=== PATIENT | male | born 1975 | race Caucasian/White ===

== ENCOUNTER → 2022-05-08 | Outpatient (REF) | payer MEDICARE, MEDICAID ==
[2022-05-09 13:29] LABS: CREATININE, URINE 23.7 MG/DL; MALB URINE SIEMENS < 3.0 MG/L; MAU/CREAT RATIO 12.6 MCG/MG (0.0-30.0)
== END ==
LOC: M LAB REF 12:16
PROVIDERS: ATTEND Nurse Practitioner Family
DX: E11.9 Type 2 diabetes mellitus without complications (principal)

== ENCOUNTER → 2022-05-26 | Outpatient (CLI) | payer MEDICARE, MEDICAID ==
[2022-05-26 20:15] LABS: BASO # 0.1 10^3/uL (0.0-0.2); BASO % 0.5 % (0.0-1.0); EOS # 0.4 10^3/uL (0.0-0.5); HEMATOCRIT 40.8 % (42.0-52.0); HEMOGLOBIN 13.3 g/dl (13.5-17.5); LYMPH # 1.7 10^3/uL (1.5-5.0); LYMPH % 18.1 % (24.0-44.0); MEAN CORPUSCULAR HGB CONC 32.6 g/dl (32.0-36.5); MEAN CORPUSCULAR VOLUME 95.1 fl (80.0-96.0); MONO # 0.5 10^3/uL (0.0-0.8); MONO % 5.9 % (2.0-8.0); NEUTROPHILS # 6.5 10^3/uL (1.5-8.5); NEUTROPHILS % 70.5 % (36.0-66.0); PLATELET COUNT, AUTOMATED 250 10^3/uL (150-450); RED BLOOD COUNT 4.29 10^6/uL (4.30-6.10); WHITE BLOOD COUNT 9.2 10^3/uL (4.0-10.0)
[2022-05-26 20:33] LABS: THYROID STIMULATING HORMONE 1.885 uIU/ML (0.55-4.78)
[2022-05-26 20:35] LABS: ALBUMIN 3.5 G/DL (3.2-5.2); ALKALINE PHOSPHATASE 117 U/L (46-116); ALT/SGPT 35 U/L (7.0-40); AST/SGOT 24 U/L (<34); BILIRUBIN,TOTAL 0.9 MG/DL (0.3-1.2); BLOOD UREA NITROGEN 11 MG/DL (9-23); CALCIUM LEVEL 9.5 MG/DL (8.5-10.1); CARBON DIOXIDE LEVEL 30 MMOL/L (20-31); CHLORIDE LEVEL 98 MMOL/L (98-107); CHOLESTEROL LEVEL 199 MG/DL (<200); CHOLESTEROL RISK RATIO 6.48 (<5); CREATININE FOR GFR 0.63 MG/DL (0.70-1.30); GLOMERULAR FILTRATION RATE > 60.0 (>60); GLUCOSE, FASTING 182 MG/DL (60-100); HDL CHOLESTEROL 30.7 MG/DL (>40); LDL CHOLESTEROL 95.1 MG/DL (<100); NON-HDL-C 168.3 MG/DL; SODIUM LEVEL 136 MMOL/L (136-145); TOTAL PROTEIN 6.7 G/DL (5.7-8.2); TRIGLYCERIDES LEVEL 366 MG/DL (<150)
[2022-05-26 20:36] LABS: TOTAL 25(OH) VITAMIN D 13.3 NG/ML (20.0-100.0)
[2022-05-26 22:32] LABS: HEMOGLOBIN A1c 7.9 % (4.0-6.0)
== END ==
LOC: M WUC 14:56
PROVIDERS: ATTEND Nurse Practitioner Family
DX: E66.3 Overweight (principal); E55.9 Vitamin D deficiency, unspecified; R53.83 Other fatigue

== ENCOUNTER → 2022-06-26 | Outpatient (REF) | payer MEDICARE, MEDICAID ==
[2022-06-27 13:32] LABS: APPEARANCE, URINE HAZY (CLEAR); BACTERIA, URINE AUTO NEGATIVE (NEGATIVE); BILIRUBIN, URINE AUTO NEGATIVE (NEGATIVE); BLOOD, URINE BLOOD NEGATIVE (NEGATIVE); COLOR, URINE YELLOW (YELLOW); GLUCOSE, URINE (UA) AUTO 3+ mg/dL (NEGATIVE); KETONE, URINE AUTO NEGATIVE (NEGATIVE); LEUKOCYTE ESTERASE, URINE AUTO NEGATIVE (NEGATIVE); NITRITE, URINE AUTO NEGATIVE (NEGATIVE); PROTEIN, URINE AUTO NEGATIVE (NEGATIVE); RBC, URINE AUTO 0 /HPF (0-3); SPECIFIC GRAVITY URINE AUTO 1.017 (1.002-1.035); SQUAMOUS EPITHELIAL CELL UR AU 0 /HPF (0-6); WBC, URINE AUTO 1 /HPF (0-3)
== END ==
LOC: M LAB REF 12:20
PROVIDERS: ATTEND Nurse Practitioner Family
DX: N40.1 Benign prostatic hyperplasia with lower urinary tract symptoms (principal)

== ENCOUNTER 2022-08-05 12:45 | Outpatient (RCR) | payer MEDICARE, MEDICAID | END 2022-08-22 | LOC: M PT 12:45 | PROVIDERS: ATTEND Nurse Practitioner Family | DX: Z89.612 Acquired absence of left leg above knee (principal) ==

== ENCOUNTER 2022-08-25 14:45 | Emergency (ER) | payer MEDICARE, MEDICAID ==
[~2022-08-25] VITALS: Ht 172.7 cm; Wt 168.8 kg
[2022-08-25] MEDS ORDERED: METOPROLOL TART 50 MG TAB PO ONE (15:15)
[2022-08-25 15:20] LABS: BASO % 0.4 % (0.0-1.0); EOS # 0.5 10^3/uL (0.0-0.5); EOS % 4.8 % (0.0-3.0); HEMATOCRIT 42.8 % (42.0-52.0); HEMOGLOBIN 14.1 g/dl (13.5-17.5); LYMPH # 1.3 10^3/uL (1.5-5.0); LYMPH % 13.3 % (24.0-44.0); MEAN CORPUSCULAR HEMOGLOBIN 30.1 pg (27.0-33.0); MEAN CORPUSCULAR HGB CONC 32.9 g/dl (32.0-36.5); MEAN CORPUSCULAR VOLUME 91.3 fl (80.0-96.0); MONO # 0.5 10^3/uL (0.0-0.8); MONO % 4.8 % (2.0-8.0); NEUTROPHILS # 7.5 10^3/uL (1.5-8.5); NEUTROPHILS % 76.2 % (36.0-66.0); PLATELET COUNT, AUTOMATED 220 10^3/uL (150-450); RED BLOOD COUNT 4.69 10^6/uL (4.30-6.10); WHITE BLOOD COUNT 9.9 10^3/uL (4.0-10.0)
[2022-08-25] MEDS: METOPROLOL 5 MG/5 ML VIAL IV SCH ×3 (15:21→15:48)
[2022-08-25 15:44] LABS: LIPASE 22 U/L (12-53)
[2022-08-25 15:46] LABS: ALBUMIN 3.7 G/DL (3.2-5.2); ALKALINE PHOSPHATASE 111 U/L (46-116); ALT/SGPT < 9 U/L (7.0-40); AST/SGOT 46 U/L (<34); BILIRUBIN,DIRECT 0.3 MG/DL (<0.4); BILIRUBIN,TOTAL 1.5 MG/DL (0.3-1.2); BLOOD UREA NITROGEN 14 MG/DL (9-23); CALCIUM LEVEL 8.3 MG/DL (8.5-10.1); CARBON DIOXIDE LEVEL 34 MMOL/L (20-31); CHLORIDE LEVEL 94 MMOL/L (98-107); CREATININE FOR GFR 0.59 MG/DL (0.70-1.30); GLOMERULAR FILTRATION RATE > 60.0 (>60); GLUCOSE, FASTING 193 MG/DL (60-100); MAGNESIUM LEVEL 1.5 MG/DL (1.8-2.4); SODIUM LEVEL 139 MMOL/L (136-145); TOTAL PROTEIN 6.9 G/DL (5.7-8.2)
[2022-08-25 15:50] LABS: THYROID STIMULATING HORMONE 1.662 uIU/ML (0.55-4.78)
[2022-08-25 16:04] LABS: RSV AMPLIFICATION NEGATIVE (NEGATIVE)
[2022-08-25] MEDS ORDERED: METOPROLOL 5 MG/5 ML VIAL IV SCH (16:10)
[2022-08-25] MEDS ORDERED: MAG SULF 1GM/100ML (MAG RUN) 1 GM in IV 1 EA IV ONE (16:10)
[2022-08-25] MEDS ORDERED: LOSARTAN 50MG TABLET PO ONE (17:25)
[2022-08-25] MEDS ORDERED: APIXABAN 5 MG TAB (ELIQUIS) PO ONE (17:25)
[2022-08-25] MEDS ORDERED: DIGOXIN 0.25 MG TAB PO ONE (17:25)
[2022-08-25] MEDS ORDERED: CARVedilol 12.5 MG TAB PO ONE (17:25)
[2022-08-25 17:41] VITALS: BP 136/87
[2022-08-25 17:48] LABS: INR 0.91; PROTHROMBIN TIME 12.5 SECONDS (12.5-14.5)
[2022-08-25] MEDS ORDERED: CETI10CH PO (18:42)
[2022-08-25] MEDS ORDERED: CYCL5TAB PO (18:42)
[2022-08-25] MEDS ORDERED: FLUT50SP17 NARES (18:42)
[2022-08-25] MEDS ORDERED: DULO1CAP6 PO (18:42)
[2022-08-25] MEDS ORDERED: VITA200032 PO (18:42)
[2022-08-25] MEDS ORDERED: ROSU20TA61 PO (18:42)
[2022-08-25] MEDS ORDERED: TORS20TA2 PO (18:42)
[2022-08-25] MEDS ORDERED: TRUL0.5I (18:42)
[2022-08-25] MEDS ORDERED: METO1TAB87 PO (18:42)
[2022-08-25] MEDS ORDERED: GABA-282 PO (18:42)
[2022-08-25] MEDS ORDERED: METF500T13 PO (18:42)
[2022-08-25] MEDS ORDERED: OMEP40CA5 PO (18:42)
[2022-08-25] MEDS ORDERED: DIGO0.253 PO (18:48)
[2022-08-25] MEDS ORDERED: CARV25TA PO (18:48)
[2022-08-25] MEDS ORDERED: ELIQ5TAB PO (18:48)
[2022-08-25] MEDS ORDERED: LOSA50TA28 PO (18:48)
[2022-08-25] MEDS ORDERED: SLOWTAB2 PO (18:48)
[2022-08-25 19:00] VITALS: BP 111/81; TEMP 97.7; O2SAT 91
== END 2022-08-25 19:12 | disposition home or self-care (01) ==
LOC: M ED 14:45
DX: E83.42 Hypomagnesemia (principal); I48.3 Typical atrial flutter; E11.9 Type 2 diabetes mellitus without complications; I10 Essential (primary) hypertension; E78.5 Hyperlipidemia, unspecified; J44.9 Chronic obstructive pulmonary disease, unspecified; G47.33 Obstructive sleep apnea (adult) (pediatric); F10.10 Alcohol abuse, uncomplicated; Z79.01 Long term (current) use of anticoagulants; Z79.811 Long term (current) use of aromatase inhibitors; Z79.4 Long term (current) use of insulin; Z79.899 Other long term (current) drug therapy
CPT/HCPCS: 71045; 80048; 80076; 83690; 83735; 83880; 84439; 84443; 85025; 85610; 87631; 93005; 93041; 94760; 96374; 96375; 99285; J3475

== ENCOUNTER 2022-09-27 22:05 | Emergency (ER) | payer MEDICARE, MEDICAID ==
[~2022-09-27] VITALS: Ht 172.7 cm; Wt 156.8 kg
[~2022-09-27 22:05] MED LIST: CARV25TA PO; CETI10CH PO; CYCL5TAB PO; DIGO0.253 PO; DULO1CAP6 PO; ELIQ5TAB PO; FLUT50SP17 NARES; GABA-282 PO; LOSA50TA28 PO; METF500T13 PO; METO1TAB87 PO; OMEP40CA5 PO; ROSU20TA61 PO; SLOWTAB2 PO; TORS20TA2 PO; TRUL0.5I INJ; VITA200032 PO
[2022-09-27 22:46] LABS: HEMATOCRIT 37.7 % (42.0-52.0); HEMOGLOBIN 12.9 g/dl (13.5-17.5); MEAN CORPUSCULAR HEMOGLOBIN 29.5 pg (27.0-33.0); MEAN CORPUSCULAR HGB CONC 34.2 g/dl (32.0-36.5); MEAN CORPUSCULAR VOLUME 86.3 fl (80.0-96.0); PLATELET COUNT, AUTOMATED 278 10^3/uL (150-450); RED BLOOD COUNT 4.37 10^6/uL (4.30-6.10); WHITE BLOOD COUNT 10.5 10^3/uL (4.0-10.0)
[2022-09-27 23:19] LABS: AMPHETAMINES LEVEL URINE NEGATIVE (NEGATIVE); BARBITURATES URINE NEGATIVE (NEGATIVE); BENZODIAZEPINES URINE NEGATIVE (NEGATIVE); CANNABINOIDS URINE NEGATIVE (NEGATIVE); COCAINE METABOLITE URINE NEGATIVE (NEGATIVE); METHADONE URINE NEGATIVE (NEGATIVE); OPIATES URINE NEGATIVE (NEGATIVE); PHENCYCLIDINE URINE NEGATIVE (NEGATIVE)
[2022-09-27 23:23] LABS: ACETAMINOPHEN LEVEL < 2.0 UG/ML (10.0-20.0); SALICYLATE LEVEL < 3.0 MG/DL (<30)
[2022-09-27 23:24] LABS: ALKALINE PHOSPHATASE 129 U/L (46-116); ALT/SGPT 35 U/L (7.0-40); AST/SGOT 55 U/L (<34); BILIRUBIN,DIRECT 0.4 MG/DL (<0.4); BLOOD UREA NITROGEN 5 MG/DL (9-23); CALCIUM LEVEL 9.1 MG/DL (8.5-10.1); CARBON DIOXIDE LEVEL 24 MMOL/L (20-31); CHLORIDE LEVEL 91 MMOL/L (98-107); CREATININE FOR GFR 0.65 MG/DL (0.70-1.30); GLOMERULAR FILTRATION RATE > 60.0 (>60); GLUCOSE, FASTING 347 MG/DL (60-100); POTASSIUM SERUM 3.6 MMOL/L (3.5-5.1); SODIUM LEVEL 131 MMOL/L (136-145); TOTAL PROTEIN 7.5 G/DL (5.7-8.2)
[2022-09-27 23:25] LABS: THYROID STIMULATING HORMONE 1.475 uIU/ML (0.55-4.78)
[2022-09-28] MEDS ORDERED: DIGOXIN 0.25 MG TAB PO STA (00:09)
[2022-09-28] MEDS ORDERED: GABA800T4 PO (00:31)
[2022-09-28] MEDS ORDERED: CYCL5TAB PO (00:31)
[2022-09-28] MEDS ORDERED: GABA-282 PO (00:31)
[2022-09-28] MEDS ORDERED: LOSA50TA28 PO (00:31)
[2022-09-28] MEDS ORDERED: CARV25TA PO (00:31)
[2022-09-28] MEDS ORDERED: SLOWTAB2 PO (00:31)
[2022-09-28] MEDS ORDERED: LORA-674 PO (00:31)
[2022-09-28] MEDS ORDERED: DIGO0.253 PO (00:31)
[2022-09-28] MEDS ORDERED: ELIQ5TAB PO (00:31)
[2022-09-28] MEDS ORDERED: HOME MED LIST COMPLETE! XX SCH (00:35)
[2022-09-28] MEDS ORDERED: APIXABAN 5 MG TAB (ELIQUIS) PO ONE (02:30)
[2022-09-28] MEDS ORDERED: CARVedilol 12.5 MG TAB PO ONE (02:30)
[2022-09-28 03:03] VITALS: BP 161/89
[2022-09-28 08:33] VITALS: BP 107/58; TEMP 98.1; O2SAT 97
== END 2022-09-28 08:33 | disposition home or self-care (01) ==
LOC: M ED 22:05
DX: F32.A Depression, unspecified (principal); E11.9 Type 2 diabetes mellitus without complications; J44.9 Chronic obstructive pulmonary disease, unspecified; I10 Essential (primary) hypertension; E78.5 Hyperlipidemia, unspecified; G47.33 Obstructive sleep apnea (adult) (pediatric); F10.20 Alcohol dependence, uncomplicated; Z86.79 Personal history of other diseases of the circulatory system; Z79.01 Long term (current) use of anticoagulants; Z79.811 Long term (current) use of aromatase inhibitors; Z79.4 Long term (current) use of insulin; Z79.899 Other long term (current) drug therapy

== ENCOUNTER → 2022-12-16 | Outpatient (REF) | payer MEDICARE, MEDICAID ==
[~2022-12-16] MED LIST changes: +GABA800T4 PO; +LORA-1041 PO
[2022-12-17 14:12] LABS: BLOOD UREA NITROGEN 10 MG/DL (9-23); CALCIUM LEVEL 9.4 MG/DL (8.5-10.1); CARBON DIOXIDE LEVEL 31 MMOL/L (20-31); CHLORIDE LEVEL 93 MMOL/L (98-107); CREATININE FOR GFR 0.61 MG/DL (0.70-1.30); GLOMERULAR FILTRATION RATE > 60.0 (>60); GLUCOSE, FASTING 410 MG/DL (60-100); MAGNESIUM LEVEL 1.8 MG/DL (1.8-2.4); POTASSIUM SERUM 5.7 MMOL/L (3.5-5.1); SODIUM LEVEL 130 MMOL/L (136-145)
== END ==
LOC: M LAB REF 12:43
PROVIDERS: ATTEND Nurse Practitioner Family
DX: I48.91 Unspecified atrial fibrillation (principal); E83.42 Hypomagnesemia

== ENCOUNTER → 2022-12-23 | Outpatient (RCR) | payer MEDICARE, MEDICAID | LOC: M PT 11-25 11:59 | PROVIDERS: ATTEND Nurse Practitioner Family | DX: Z74.09 Other reduced mobility (principal) ==

== ENCOUNTER 2023-04-08 00:37 | Emergency (ER) | payer MEDICARE, MEDICAID ==
[~2023-04-08] VITALS: Ht 172.7 cm; Wt 174.0 kg
[~2023-04-08 00:37] MED LIST changes: -FLUT50SP17 NARES; +FLUTISP NARES
[2023-04-08] MEDS: IPRATROPIUM 0.5MG/ALBUTEROL 2.5MG INH SOL UD 3ML (DUONEB) NEB PRN (01:48)
[2023-04-08 01:55] VITALS: O2SAT 94
[2023-04-08 01:55] LABS: RSV AMPLIFICATION NEGATIVE (NEGATIVE)
[2023-04-08 01:59] VITALS: TEMP 96.2
[2023-04-08] MEDS: predniSONE 20 MG TAB PO ONE (02:40)
[2023-04-08] MEDS: CYCLOBENZAPRINE 10MG TABLET PO ONE (02:40)
[2023-04-08 02:44] LABS: BASO % 0.5 % (0.0-1.0); EOS # 0.3 10^3/uL (0.0-0.5); EOS % 4.3 % (0.0-3.0); HEMATOCRIT 41.3 % (42.0-52.0); HEMOGLOBIN 13.5 g/dl (13.5-17.5); LYMPH # 0.8 10^3/uL (1.5-5.0); LYMPH % 13.3 % (24.0-44.0); MEAN CORPUSCULAR HEMOGLOBIN 30.5 pg (27.0-33.0); MEAN CORPUSCULAR HGB CONC 32.7 g/dl (32.0-36.5); MEAN CORPUSCULAR VOLUME 93.2 fl (80.0-96.0); MONO # 0.4 10^3/uL (0.0-0.8); MONO % 6.9 % (2.0-8.0); NEUTROPHILS # 4.5 10^3/uL (1.5-8.5); PLATELET COUNT, AUTOMATED 163 10^3/uL (150-450); RED BLOOD COUNT 4.43 10^6/uL (4.30-6.10); WHITE BLOOD COUNT 6.1 10^3/uL (4.0-10.0)
[2023-04-08 03:14] LABS: BLOOD UREA NITROGEN 5 MG/DL (9-23); CALCIUM LEVEL 8.4 MG/DL (8.5-10.1); CARBON DIOXIDE LEVEL 32 MMOL/L (20-31); CHLORIDE LEVEL 97 MMOL/L (98-107); CREATININE FOR GFR 0.53 MG/DL (0.70-1.30); GLOMERULAR FILTRATION RATE > 60.0 (>60); GLUCOSE, FASTING 245 MG/DL (60-100); POTASSIUM SERUM 4.4 MMOL/L (3.5-5.1); SODIUM LEVEL 132 MMOL/L (136-145)
[2023-04-08 03:27] LABS: PROCALCITONIN 0.12 ng/ml
[2023-04-08 03:37] VITALS: BP 144/74; O2SAT 95
[2023-04-08] MEDS ORDERED: AZIT-12 PO (03:55)
[2023-04-08] MEDS ORDERED: COMBAER6 INH (03:55)
[2023-04-08] MEDS ORDERED: PRED20TA PO (03:55)
== END 2023-04-08 08:59 | disposition home or self-care (01) ==
LOC: EDBD 00:37 → M ED 00:37
DX: J44.1 Chronic obstructive pulmonary disease with (acute) exacerbation (principal); B34.8 Other viral infections of unspecified site; E11.9 Type 2 diabetes mellitus without complications; I10 Essential (primary) hypertension; E78.5 Hyperlipidemia, unspecified; K21.9 Gastro-esophageal reflux disease without esophagitis; F32.A Depression, unspecified; G47.33 Obstructive sleep apnea (adult) (pediatric); Z86.79 Personal history of other diseases of the circulatory system; Z79.84 Long term (current) use of oral hypoglycemic drugs; Z79.4 Long term (current) use of insulin; Z79.52 Long term (current) use of systemic steroids; Z79.01 Long term (current) use of anticoagulants; Z79.811 Long term (current) use of aromatase inhibitors; Z79.899 Other long term (current) drug therapy
CPT/HCPCS: 36415; 71046; 80048; 84145; 85025; 87486; 87581; 87631; 87633; 87798; 93005; 94640; 99284; J7512

== ENCOUNTER 2023-05-19 21:26 | Inpatient (IN) | payer MEDICARE, MEDICAID ==
[~2023-05-19] VITALS: Ht 172.7 cm; Wt 171.0 kg
[~2023-05-19 21:26] MED LIST changes: +AZIT-12 PO; +COMBAER6 INH; +PRED20TA PO
[2023-05-19] MEDS: METOPROLOL TART 25 MG TABLET PO ONE ×2 (21:53→23:05)
[2023-05-19] MEDS: METOPROLOL 5 MG/5 ML VIAL IV PRN ×2 (21:53→23:31)
[2023-05-19 21:56] LABS: VENOUS BASE EXCESS -5.8 (-2.0-2.0); VENOUS HCO3 21.7 MMOL/L (23.0-27.0); VENOUS O2 SATURATION 86.7 % (60.0-80.0); VENOUS PARTIAL PRESSURE CO2 50.2 mmHg (38.0-50.0); VENOUS PARTIAL PRESSURE O2 58.3 mmHg (30.0-50.0); VENOUS PH 7.254 UNITS (7.330-7.430); VENOUS STANDARD HCO3 19.5 MMOL/L; VENOUS TOTAL CO2 23.3 MMOL/L (24.0-28.0)
[2023-05-19] MEDS: ONDANSETRON 4MG 2ML VIAL IV ONE (21:57)
[2023-05-19] MEDS: DIGOXIN INJ 0.5 MG/2 ML AMP IV ONE (21:58)
[2023-05-19 22:00] LABS: BASO # 0.1 10^3/uL (0.0-0.2); BASO % 0.9 % (0.0-1.0); EOS # 0.2 10^3/uL (0.0-0.5); EOS % 1.8 % (0.0-3.0); HEMATOCRIT 44.1 % (42.0-52.0); LYMPH # 2.3 10^3/uL (1.5-5.0); LYMPH % 21.3 % (24.0-44.0); MEAN CORPUSCULAR HEMOGLOBIN 30.4 pg (27.0-33.0); MEAN CORPUSCULAR VOLUME 89.5 fl (80.0-96.0); MONO # 0.5 10^3/uL (0.0-0.8); MONO % 5.1 % (2.0-8.0); NEUTROPHILS # 7.3 10^3/uL (1.5-8.5); NEUTROPHILS % 69.5 % (36.0-66.0); PLATELET COUNT, AUTOMATED 251 10^3/uL (150-450); RED BLOOD COUNT 4.93 10^6/uL (4.30-6.10); WHITE BLOOD COUNT 10.5 10^3/uL (4.0-10.0)
[2023-05-19 22:12] LABS: INR 1.04; PARTIAL THROMBOPLASTIN TIME 26.1 SECONDS (24.8-34.2); PROTHROMBIN TIME 13.3 SECONDS (12.5-14.5)
[2023-05-19 22:20] LABS: CK-MB VALUE MASS 1.4 NG/ML (<3.6); ETHYL ALCOHOL (ETHANOL) 0.227 % (0.000-0.010)
[2023-05-19 22:21] LABS: SALICYLATE LEVEL < 3.0 MG/DL (<30)
[2023-05-19 22:22] LABS: ALBUMIN 3.8 G/DL (3.2-5.2); ALKALINE PHOSPHATASE 124 U/L (46-116); ALT/SGPT 42 U/L (7.0-40); AST/SGOT 54 U/L (<34); BILIRUBIN,DIRECT 0.3 MG/DL (<0.4); BILIRUBIN,TOTAL 1.1 MG/DL (0.3-1.2); BLOOD UREA NITROGEN 5 MG/DL (9-23); CALCIUM LEVEL 8.7 MG/DL (8.5-10.1); CARBON DIOXIDE LEVEL 23 MMOL/L (20-31); CHLORIDE LEVEL 98 MMOL/L (98-107); CPK CREATINE PHOSPHOKINASE 69 U/L (46-171); CREATININE FOR GFR 0.51 MG/DL (0.70-1.30); DIGOXIN LEVEL < 0.1 NG/ML (0.8-2.0); GLOMERULAR FILTRATION RATE > 60.0 (>60); GLUCOSE, FASTING 251 MG/DL (60-100); MB/CK RELATIVE INDEX 2.02 (< OR =4); POTASSIUM SERUM 3.6 MMOL/L (3.5-5.1); SODIUM LEVEL 130 MMOL/L (136-145); TOTAL PROTEIN 7.4 G/DL (5.7-8.2)
[2023-05-19 22:23] LABS: ABG BASE EXCESS -5.2 (-2.0-2.0); ABG HCO3 22.2 MMOL/L (22.0-26.0); ABG O2 SATURATION 88.8 % (95.0-99.0); ABG PARTIAL PRESSURE CO2 50.2 mmHg (35.0-45.0); ABG PARTIAL PRESSURE O2 64.6 mmHg (75.0-100.0); ABG TOTAL CO2 23.7 MMOL/L (22.0-29.0); ABG pH (ARTERIAL) 7.263 UNITS (7.350-7.450)
[2023-05-19 22:23] LABS: THYROID STIMULATING HORMONE 1.427 uIU/ML (0.55-4.78)
[2023-05-19] MEDS: FUROSEMIDE 40MG/4ML VIAL IV ONE (22:33)
[2023-05-19] MEDS ORDERED: ISOVUE-370 76% 100ML VIAL As Ordered ONE (22:45)
[2023-05-19] MEDS ORDERED: DIGOXIN 0.25 MG TAB PO ONE (23:05)
[2023-05-19 23:59] LABS: MB/CK RELATIVE INDEX 3.03 (< OR =4)
[2023-05-20] VITALS (29 sets, daily range): BP systolic 101–139; BP diastolic 53–98; TEMP 98.1–99.1; O2SAT 92–100
[2023-05-20 00:11] LABS: ABG HCO3 22.9 MMOL/L (22.0-26.0); ABG O2 SATURATION 96.6 % (95.0-99.0); ABG PARTIAL PRESSURE CO2 53.6 mmHg (35.0-45.0); ABG PARTIAL PRESSURE O2 97.8 mmHg (75.0-100.0); ABG STANDARD HCO3 20.4 MMOL/L. (22.0-26.0); ABG TOTAL CO2 24.6 MMOL/L (22.0-29.0); ABG pH (ARTERIAL) 7.249 UNITS (7.350-7.450)
[2023-05-20] MEDS: ASPIRIN 81MG CHEW TABLET PO ONE (00:35)
[2023-05-20 01:50] LABS: APPEARANCE, URINE CLEAR (CLEAR); BACTERIA, URINE AUTO NEGATIVE (NEGATIVE); BILIRUBIN, URINE AUTO NEGATIVE (NEGATIVE); BLOOD, URINE BLOOD NEGATIVE (NEGATIVE); COLOR, URINE STRAW (YELLOW); GLUCOSE, URINE (UA) AUTO 1+ mg/dL (NEGATIVE); KETONE, URINE AUTO NEGATIVE (NEGATIVE); LEUKOCYTE ESTERASE, URINE AUTO NEGATIVE (NEGATIVE); NITRITE, URINE AUTO NEGATIVE (NEGATIVE); PROTEIN, URINE AUTO NEGATIVE (NEGATIVE); RBC, URINE AUTO 0 /HPF (0-3); SPECIFIC GRAVITY URINE AUTO 1.008 (1.002-1.035); SQUAMOUS EPITHELIAL CELL UR AU 0 /HPF (0-6); UROBILINOGEN, URINE AUTO 0.2 mg/dL (0.0-2.0); WBC, URINE AUTO 0 /HPF (0-3)
[2023-05-20] MEDS ORDERED: COMBAER6 INH (02:33)
[2023-05-20] MEDS ORDERED: METO25TA4 PO (02:33)
[2023-05-20] MEDS ORDERED: MAGN400T35 PO (02:33)
[2023-05-20] MEDS ORDERED: DULA3PEN SC (02:33)
[2023-05-20] MEDS ORDERED: FLOM0.4C39 PO (02:33)
[2023-05-20] MEDS ORDERED: HOME MED LIST COMPLETE! XX SCH (02:40)
[2023-05-20 05:40] LABS: ABG BASE EXCESS -2.4 (-2.0-2.0); ABG HCO3 24.6 MMOL/L (22.0-26.0); ABG O2 SATURATION 98.4 % (95.0-99.0); ABG PARTIAL PRESSURE CO2 51.1 mmHg (35.0-45.0); ABG PARTIAL PRESSURE O2 131.6 mmHg (75.0-100.0); ABG STANDARD HCO3 22.5 MMOL/L. (22.0-26.0); ABG TOTAL CO2 26.1 MMOL/L (22.0-29.0)
[2023-05-20] MEDS: IPRATROPIUM 0.5MG/ALBUTEROL 2.5MG INH SOL UD 3ML (DUONEB) NEB SCH (07:51)
[2023-05-20] MEDS: FOLIC ACID 1MG TAB PO SCH (09:15)
[2023-05-20] MEDS: PANTOPRAZOLE 40MG VIAL IV SCH (09:15)
[2023-05-20] MEDS: DULoxetine 30MG CAPSULE (CYMBALTA) PO SCH (09:16)
[2023-05-20] MEDS: DIGOXIN 0.25 MG TAB PO SCH (09:16)
[2023-05-20] MEDS: ROSUVASTATIN 10 MG TAB (CRESTOR) PO SCH (09:16)
[2023-05-20] MEDS: THIAMINE 100 MG TAB PO SCH (09:17)
[2023-05-20] MEDS: APIXABAN 5 MG TAB (ELIQUIS) PO SCH (09:17)
[2023-05-20] MEDS: TAMSULOSIN 0.4 MG CAP PO SCH (09:17)
[2023-05-20] MEDS: MULTIVITAMINS/MINERALS THERAP 1 TAB PO SCH (09:17)
[2023-05-20] MEDS: GABAPENTIN 300 MG CAP PO SCH (09:17)
[2023-05-20] MEDS: METOPROLOL TART 25 MG TABLET PO SCH (09:23)
[2023-05-20] MEDS: METOPROLOL 5 MG/5 ML VIAL IV STA (09:24)
[2023-05-20] MEDS: dilTIAZem 25MG/5ML VIAL IV STA (10:05)
[2023-05-20] MEDS: AMIODARONE HCL 150 MG in IV 1 EA IV ONE (12:19)
[2023-05-20] MEDS: AMIODARONE HCL 360 MG in IV 1 EA IV SCH (12:36)
[2023-05-20] MEDS: diltiaZEM 125 MG in NS 100 ML IV SCH (14:07)
[2023-05-20] MEDS: DIGOXIN INJ 0.5 MG/2 ML AMP IV ONE ×2 (16:05→21:47)
[2023-05-20 17:53] LABS: MAGNESIUM LEVEL 1.6 MG/DL (1.8-2.4)
[2023-05-20] MEDS ORDERED: AMIODARONE HCL 360 MG in IV 1 EA IV SCH (18:30)
[2023-05-20] MEDS: MAG SULF 1GM/100ML (MAG RUN) 1 GM in IV 1 EA IV ONE (18:47)
[2023-05-21] VITALS (19 sets, daily range): BP systolic 127–164; BP diastolic 62–93; PULSE 77; TEMP 97.7–99.4; O2SAT 87–98
[2023-05-21] MEDS: ACETAMINOPHEN TAB 650MG DOSE (2X325MG) PO PRN (00:24)
[2023-05-21] MEDS: ALBUTEROL SULFATE 2.5MG/0.5ML INH NEB SOLN NEB PRN (04:11)
[2023-05-21 04:17] LABS: BASO % 0.4 % (0.0-1.0); EOS # 0.3 10^3/uL (0.0-0.5); EOS % 3.9 % (0.0-3.0); LYMPH # 1.1 10^3/uL (1.5-5.0); LYMPH % 15.5 % (24.0-44.0); MEAN CORPUSCULAR HEMOGLOBIN 30.7 pg (27.0-33.0); MEAN CORPUSCULAR HGB CONC 33.4 g/dl (32.0-36.5); MONO # 0.4 10^3/uL (0.0-0.8); MONO % 5.6 % (2.0-8.0); NEUTROPHILS # 5.4 10^3/uL (1.5-8.5); PLATELET COUNT, AUTOMATED 175 10^3/uL (150-450); WHITE BLOOD COUNT 7.3 10^3/uL (4.0-10.0)
[2023-05-21 04:34] LABS: HEMATOCRIT 37.7 % (42.0-52.0); HEMOGLOBIN 12.6 g/dl (13.5-17.5)
[2023-05-21 04:39] LABS: ETHYL ALCOHOL (ETHANOL) < 0.003 % (0.000-0.010)
[2023-05-21 04:43] LABS: ALKALINE PHOSPHATASE 107 U/L (46-116); ALT/SGPT 37 U/L (7.0-40); AST/SGOT 49 U/L (<34); BILIRUBIN,TOTAL 1.4 MG/DL (0.3-1.2); BLOOD UREA NITROGEN 10 MG/DL (9-23); CALCIUM LEVEL 8.8 MG/DL (8.5-10.1); CARBON DIOXIDE LEVEL 31 MMOL/L (20-31); CHLORIDE LEVEL 98 MMOL/L (98-107); CREATININE FOR GFR 0.48 MG/DL (0.70-1.30); GLOMERULAR FILTRATION RATE > 60.0 (>60); GLUCOSE, FASTING 202 MG/DL (60-100); POTASSIUM SERUM 4.3 MMOL/L (3.5-5.1); SODIUM LEVEL 134 MMOL/L (136-145)
[2023-05-21 06:10] LABS: ABG BASE EXCESS 3.7 (-2.0-2.0); ABG HCO3 31.9 MMOL/L (22.0-26.0); ABG O2 SATURATION 98.7 % (95.0-99.0); ABG PARTIAL PRESSURE O2 147.2 mmHg (75.0-100.0); ABG STANDARD HCO3 27.8 MMOL/L. (22.0-26.0); ABG TOTAL CO2 33.9 MMOL/L (22.0-29.0); ABG pH (ARTERIAL) 7.305 UNITS (7.350-7.450)
[2023-05-21 06:18] LABS: ABG PARTIAL PRESSURE CO2 65.5 mmHg (35.0-45.0)
[2023-05-21] MEDS ORDERED: DEXTROSE 50% 50ML SYRINGE IV PRN (09:55)
[2023-05-21] MEDS ORDERED: GLUCOSE 4GM CHEW TABLET PO PRN (09:55)
[2023-05-21] MEDS ORDERED: GLUCAGON INJ 1MG VIAL SC PRN (09:55)
[2023-05-21 10:18] LABS: VENOUS BASE EXCESS 4.4 (-2.0-2.0); VENOUS HCO3 28.6 MMOL/L (23.0-27.0); VENOUS O2 SATURATION 99.5 % (60.0-80.0); VENOUS PARTIAL PRESSURE CO2 40.8 mmHg (38.0-50.0); VENOUS PARTIAL PRESSURE O2 228.4 mmHg (30.0-50.0); VENOUS PH 7.463 UNITS (7.330-7.430); VENOUS STANDARD HCO3 28.5 MMOL/L; VENOUS TOTAL CO2 29.8 MMOL/L (24.0-28.0)
[2023-05-21] MEDS: FUROSEMIDE 40MG/4ML VIAL IV ONE (10:45)
[2023-05-21] MEDS: INSULIN LISPRO (NovoLOG) PER UNIT SC SCH ×2 (11:50→21:00)
[2023-05-21] MEDS: METOPROLOL TART 25 MG TABLET PO SCH (15:37)
[2023-05-21] MEDS: LEVEMIR (INSULIN DETEMIR) 1 UNITS/0.01ML SC SCH (21:32)
[2023-05-22] VITALS (24 sets, daily range): BP systolic 89–161; BP diastolic 53–82; TEMP 97.4–99.9; O2SAT 91–98
[2023-05-22] MEDS: LEVALBUTEROL 1.25MG 0.5ML CONCENTRATE NEB NEB ONE (01:31)
[2023-05-22 05:47] LABS: ALBUMIN 3.1 G/DL (3.2-5.2); ALKALINE PHOSPHATASE 107 U/L (46-116); ALT/SGPT 34 U/L (7.0-40); AST/SGOT 33 U/L (<34); BILIRUBIN,TOTAL 1.2 MG/DL (0.3-1.2); BLOOD UREA NITROGEN 9 MG/DL (9-23); CALCIUM LEVEL 8.4 MG/DL (8.5-10.1); CARBON DIOXIDE LEVEL 33 MMOL/L (20-31); CHLORIDE LEVEL 98 MMOL/L (98-107); CREATININE FOR GFR 0.55 MG/DL (0.70-1.30); GLOMERULAR FILTRATION RATE > 60.0 (>60); GLUCOSE, FASTING 167 MG/DL (60-100); MAGNESIUM LEVEL 1.8 MG/DL (1.8-2.4); PHOSPHORUS LEVEL 2.5 MG/DL (2.5-4.9); POTASSIUM SERUM 3.7 MMOL/L (3.5-5.1); SODIUM LEVEL 136 MMOL/L (136-145)
[2023-05-22 06:11] LABS: HEMOGLOBIN A1c 8.3 % (4.0-6.0)
[2023-05-22] MEDS: dilTIAZem 30 MG TAB PO SCH ×2 (08:34→18:24)
[2023-05-22 09:01] LABS: DIGOXIN LEVEL 0.4 NG/ML (0.8-2.0)
[2023-05-22] MEDS: FUROSEMIDE 20MG/2ML VIAL IV SCH (10:00)
[2023-05-22] MEDS: MAG SULF 1GM/100ML (MAG RUN) 1 GM in IV 1 EA IV ONE (10:01)
[2023-05-22] MEDS: diltiaZEM 125 MG in NS 100 ML IV SCH (14:50)
[2023-05-22] MEDS: METOPROLOL TART 50 MG TAB PO SCH (21:07)
[2023-05-23] VITALS (15 sets, daily range): BP systolic 109–162; BP diastolic 54–88; TEMP 97–98.8; O2SAT 92–98
[2023-05-23 06:11] LABS: BLOOD UREA NITROGEN 10 MG/DL (9-23); CARBON DIOXIDE LEVEL 32 MMOL/L (20-31); CHLORIDE LEVEL 100 MMOL/L (98-107); CREATININE FOR GFR 0.59 MG/DL (0.70-1.30); GLOMERULAR FILTRATION RATE > 60.0 (>60); GLUCOSE, FASTING 203 MG/DL (60-100); MAGNESIUM LEVEL 1.9 MG/DL (1.8-2.4); POTASSIUM SERUM 4.1 MMOL/L (3.5-5.1); SODIUM LEVEL 136 MMOL/L (136-145)
[2023-05-23] MEDS: FUROSEMIDE 40MG/4ML VIAL IV SCH (08:50)
[2023-05-23] MEDS: OMEPRAZOLE 20MG CAP PO SCH (08:53)
[2023-05-23] MEDS: MAG SULF 1GM/100ML (MAG RUN) 1 GM in IV 1 EA IV ONE (09:08)
[2023-05-23] MEDS: AMIODARONE 200 MG TAB (PACERONE) PO SCH (15:05)
[2023-05-24] VITALS (15 sets, daily range): BP systolic 108–158; BP diastolic 56–80; TEMP 97–98.4; O2SAT 88–95
[2023-05-24 06:21] LABS: BLOOD UREA NITROGEN 12 MG/DL (9-23); CALCIUM LEVEL 8.9 MG/DL (8.5-10.1); CARBON DIOXIDE LEVEL 34 MMOL/L (20-31); CHLORIDE LEVEL 100 MMOL/L (98-107); CREATININE FOR GFR 0.58 MG/DL (0.70-1.30); GLOMERULAR FILTRATION RATE > 60.0 (>60); GLUCOSE, FASTING 165 MG/DL (60-100); MAGNESIUM LEVEL 1.9 MG/DL (1.8-2.4); POTASSIUM SERUM 4.2 MMOL/L (3.5-5.1); SODIUM LEVEL 137 MMOL/L (136-145)
[2023-05-25] VITALS (23 sets, daily range): BP systolic 131–147; BP diastolic 66–71; TEMP 96.8–97.6; O2SAT 78–96
[2023-05-25 05:49] LABS: BLOOD UREA NITROGEN 12 MG/DL (9-23); CALCIUM LEVEL 8.9 MG/DL (8.5-10.1); CARBON DIOXIDE LEVEL 34 MMOL/L (20-31); CHLORIDE LEVEL 101 MMOL/L (98-107); CREATININE FOR GFR 0.69 MG/DL (0.70-1.30); GLOMERULAR FILTRATION RATE > 60.0 (>60); GLUCOSE, FASTING 175 MG/DL (60-100); MAGNESIUM LEVEL 1.8 MG/DL (1.8-2.4); SODIUM LEVEL 139 MMOL/L (136-145)
[2023-05-25] MEDS: TORSEMIDE 20 MG TAB PO SCH (08:49)
[2023-05-25] MEDS ORDERED: POTA10CA60 PO (12:30)
[2023-05-25] MEDS ORDERED: ELIQ5TAB PO (12:30)
[2023-05-25] MEDS ORDERED: LOPR1TAB6 PO (12:30)
[2023-05-25] MEDS ORDERED: AMIO200T49 PO (12:30)
== END 2023-05-25 14:51 | disposition home or self-care (01) | DRG 189 ==
LOC: M ED 21:26 → M ED INP 05-20 02:34 → M ICU 05-20 07:46 → M PCU 05-24 16:05
PROVIDERS: ADMIT Internal Medicine; ATTEND Internal Medicine
DX: J96.22 Acute and chronic respiratory failure with hypercapnia (principal); I50.33 Acute on chronic diastolic (congestive) heart failure; I48.92 Unspecified atrial flutter; R45.851 Suicidal ideations; Z68.44 Body mass index [BMI] 60.0-69.9, adult; E87.1 Hypo-osmolality and hyponatremia; E66.2 Morbid (severe) obesity with alveolar hypoventilation; J96.21 Acute and chronic respiratory failure with hypoxia; I48.91 Unspecified atrial fibrillation; J44.9 Chronic obstructive pulmonary disease, unspecified; K70.10 Alcoholic hepatitis without ascites; F10.229 Alcohol dependence with intoxication, unspecified; E11.42 Type 2 diabetes mellitus with diabetic polyneuropathy; F43.21 Adjustment disorder with depressed mood; E78.5 Hyperlipidemia, unspecified; F32.A Depression, unspecified; Z79.899 Other long term (current) drug therapy; Z91.119 Patient's noncompliance with dietary regimen due to unspecified reason; Z89.612 Acquired absence of left leg above knee; K21.9 Gastro-esophageal reflux disease without esophagitis; N40.0 Benign prostatic hyperplasia without lower urinary tract symptoms

== ENCOUNTER → 2023-06-02 | Outpatient (REF) | payer MEDICARE, MEDICAID ==
[~2023-06-02] MED LIST changes: +AMIO200T49 PO; +DULA3PEN SC; +FLOM0.4C39 PO; +LOPR1TAB6 PO; +MAGN400T35 PO; +METO25TA4 PO; +POTA10CA60 PO
[2023-06-03 13:13] LABS: CREATININE, URINE 196.5 MG/DL; MAU/CREAT RATIO 64.6 MCG/MG (0.0-30.0)
== END ==
LOC: M LAB REF 11:49
PROVIDERS: ATTEND Nurse Practitioner Family
DX: E11.9 Type 2 diabetes mellitus without complications (principal)

== ENCOUNTER → 2023-06-07 | Outpatient (CLI) | payer MEDICARE, MEDICAID | LOC: M SLEEP 20:00 | PROVIDERS: ATTEND Nurse Practitioner Family | DX: G47.33 Obstructive sleep apnea (adult) (pediatric) (principal) ==

== ENCOUNTER → 2023-07-07 | Outpatient (CLI) | payer MEDICARE, MEDICAID ==
[~2023-07-07] MED LIST changes: -POTA10CA60 PO; +POTA10CA70 PO
[2023-07-07 12:33] LABS: BASO # 0.1 10^3/uL (0.0-0.2); BASO % 0.5 % (0.0-1.0); EOS # 0.7 10^3/uL (0.0-0.5); EOS % 7.7 % (0.0-3.0); HEMATOCRIT 38.7 % (42.0-52.0); HEMOGLOBIN 12.7 g/dl (13.5-17.5); LYMPH # 1.9 10^3/uL (1.5-5.0); LYMPH % 20.4 % (24.0-44.0); MEAN CORPUSCULAR HEMOGLOBIN 30.1 pg (27.0-33.0); MEAN CORPUSCULAR HGB CONC 32.8 g/dl (32.0-36.5); MEAN CORPUSCULAR VOLUME 91.7 fl (80.0-96.0); MONO # 0.5 10^3/uL (0.0-0.8); NEUTROPHILS # 6.1 10^3/uL (1.5-8.5); NEUTROPHILS % 65.5 % (36.0-66.0); PLATELET COUNT, AUTOMATED 224 10^3/uL (150-450); RED BLOOD COUNT 4.22 10^6/uL (4.30-6.10); WHITE BLOOD COUNT 9.3 10^3/uL (4.0-10.0)
[2023-07-07 12:54] LABS: ALBUMIN 3.8 G/DL (3.2-5.2); ALKALINE PHOSPHATASE 128 U/L (46-116); ALT/SGPT 33 U/L (7.0-40); AST/SGOT 36 U/L (<34); BILIRUBIN,TOTAL 1.2 MG/DL (0.3-1.2); BLOOD UREA NITROGEN 12 MG/DL (9-23); CALCIUM LEVEL 9.7 MG/DL (8.5-10.1); CARBON DIOXIDE LEVEL 31 MMOL/L (20-31); CHLORIDE LEVEL 97 MMOL/L (98-107); CHOLESTEROL LEVEL 133 MG/DL (<200); CREATININE FOR GFR 0.93 MG/DL (0.70-1.30); GLOMERULAR FILTRATION RATE > 60.0 (>60); GLUCOSE, FASTING 167 MG/DL (60-100); HDL CHOLESTEROL 26.6 MG/DL (>40); LDL CHOLESTEROL 60.6 MG/DL (<100); NON-HDL-C 106.4 MG/DL; POTASSIUM SERUM 3.7 MMOL/L (3.5-5.1); SODIUM LEVEL 139 MMOL/L (136-145); TRIGLYCERIDES LEVEL 229 MG/DL (<150)
== END ==
LOC: M WUC 10:09
PROVIDERS: ATTEND Internal Medicine Cardiovascular Disease
DX: E78.5 Hyperlipidemia, unspecified (principal); I48.0 Paroxysmal atrial fibrillation; I10 Essential (primary) hypertension; E11.9 Type 2 diabetes mellitus without complications

== ENCOUNTER → 2023-09-01 | Outpatient (REF) | payer MEDICARE, MEDICAID ==
[2023-09-02 13:58] LABS: CREATININE, URINE 14.7 MG/DL; MALB URINE SIEMENS < 3.0 MG/L; MAU/CREAT RATIO 20.4 MCG/MG (0.0-30.0)
[2023-09-02 14:18] LABS: Trichomonas vaginalis (AMP) NOT DETECTED (NEGATIVE)
[2023-09-02 14:42] LABS: GC DNA AMPLIFICATION NEGATIVE (NEGATIVE)
== END ==
LOC: M LAB REF 12:04
PROVIDERS: ATTEND Nurse Practitioner Family
DX: E11.9 Type 2 diabetes mellitus without complications (principal); Z11.3 Encounter for screening for infections with a predominantly sexual mode of transmission; Z72.89 Other problems related to lifestyle

== ENCOUNTER → 2023-09-24 | Outpatient (CLI) | payer MEDICAID, MEDICARE | LOC: M RAD 15:49 | PROVIDERS: ATTEND Nurse Practitioner Family | DX: R22.2 Localized swelling, mass and lump, trunk (principal) ==

== ENCOUNTER 2024-02-22 13:30 | Outpatient (RCR) | payer MEDICARE ==
[~2024-02-22 13:30] MED LIST changes: -CYCL5TAB PO; +CYCL5TAB4 PO; +GABA-1172 PO; +GABA-1635 PO; -GABA-282 PO; -GABA800T4 PO; -ROSU20TA61 PO; +ROSU20TA86 PO
== END 2024-02-23 ==
LOC: M PT 13:30
PROVIDERS: ATTEND Nurse Practitioner Family
DX: Z89.612 Acquired absence of left leg above knee (principal)

== ENCOUNTER 2024-03-23 13:14 | Outpatient (RCR) | payer MEDICARE | END 2024-03-25 | LOC: M PT 13:14 | PROVIDERS: ATTEND Nurse Practitioner Family | DX: Z89.612 Acquired absence of left leg above knee (principal) ==

== ENCOUNTER 2024-04-13 13:30 | Outpatient (RCR) | payer MEDICARE | END 2024-04-22 | LOC: M PT 13:30 | PROVIDERS: ATTEND Nurse Practitioner Family | DX: Z89.612 Acquired absence of left leg above knee (principal) ==